=== PATIENT | female | born 1965 | race Caucasian/White ===

== ENCOUNTER 2017-10-15 06:50 | Day surgery (SDC) | payer MEDICAID ==
[2017-10-14 13:59] LABS: BASOPHILS 0.2 % (0-2); EOSINOPHILS 0.6 % (0-7); HEMATOCRIT 37.6 % (36.0-48.0); HEMOGLOBIN 12.7 g/dL (12-16); IMMATURE GRANULOCYTES 0.2 % (0-5); MCH 34.5 pg (26.0-34.0); MCHC 33.8 g/dL (31.0-37.0); MCV 102.2 fL (80.0-100.0); MEAN PLATELET VOLUME 9.8 fL (7.4-10.4); MONOCYTES 8.3 % (2-11); NEUTROPHILS 53.7 % (40-80); PLATELET COUNT 217 10x3/uL (130-400); RBC 3.68 10x6/uL (4.00-5.40); RDW 13.6 % (11.5-14.5)
[2017-10-14 14:08] LABS: APTT 29.4 SECONDS (22.8-39.4); INR 1.05 (0.85-1.17); PROTIME 13.3 SECONDS (11.6-15.0)
[2017-10-14 14:22] LABS: ALBUMIN 3.4 g/dL (3.4-5.0); ALKALINE PHOSPHATASE 62 U/L (46-116); ALT (SGPT) 76 U/L (10-68); BILIRUBIN - TOTAL 0.54 mg/dL (0.2-1.3); CALC OSMOLALITY 273 mosm/kg (275-300); CARBON DIOXIDE 25.5 mmol/L (21.0-32.0); CHLORIDE - SERUM 102 mmol/L (98-107); CREATININE - SERUM 0.8 mg/dL (0.6-1.3); GLUCOSE 116 mg/dL (74-106); PROTEIN - SERUM 7.6 g/dL (6.4-8.2); SODIUM 137 mmol/L (136-145); UREA NITROGEN 10 mg/dL (7-18); eGFR NON AFRICAN AMERICAN 80 mL/min (90-120)
[~2017-10-15] VITALS: Ht 170.2 cm; Wt 56.2 kg
--- NOTE | ~2017-10-15 | OP ---
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 POSTOPERATIVE DIAGNOSIS: Simple hyperplasia without atypia. PROCEDURE PERFORMED: Dilation and curettage. SURGEON: Gloria Landers MD ANESTHETIC: General. FINDINGS: Uterus sounds to approximately 7-8 cm. Ktwqq-kk-[id number] tissue removed. SPECIMENS: Endometrial curettings. SPECIMEN DISPOSITION: Pathology. ESTIMATED BLOOD LOSS: Less than or equal to 25 cc. FLUIDS: Lactated Ringer's 400 cc. URINE OUTPUT: Quantity sufficient void prior to this procedure. COMPLICATIONS: None. INDICATIONS: The patient is a 52-year-old female with postmenopausal bleeding and a known diagnosis of simple hyperplasia without atypia. The patient has been given risks and benefits of the procedure. DESCRIPTION OF PROCEDURE: After informed consent was assured, the patient was taken to the operating room where anesthetic was obtained without difficulty. The patient is now prepped and draped in the usual sterile fashion after being placed in stirrups. Speculum was introduced in the vagina. The cervix was identified and serially dilated to accommodate a #2 sharp curettage. Sharp curettage was performed after sounding of the uterus. Curettage was performed until good cry was obtained throughout. At the close of the procedure, single-tooth tenaculum, which was used to steady the cervix during this case, was removed with minimal bleeding noted. Sponge, lap, needle counts correct times 2 at the close. TRANSINT:[id number] Voice Confirmation ID: [id number] DOCUMENT ID: [id number] OPERATIVE REPORT [id number] COLBY ORTIZ GLORIA LANDERS MD at 1309 CC: [id number] DICTATION DATE: 11/12/17 0047 MARKETING PRODUCER: 11/12/[address] [facility] 10/15/[address] [address]
[~2017-10-15 06:50] MED LIST: HYDROCODON-ACE1 EAC7 PO; SEROQUEL300 MG PO; SYMBICORT 80-10.2 GM INH; XANAX1 MG PO
[2017-10-15 08:33] VITALS: BP 126/87; Ht 170.2 cm; Wt 56.2 kg
== END 2017-10-15 12:35 | disposition home or self-care (01) ==
LOC: D.OPS 06:50 → D.PAN 09:00 → D.OPS 12:35
PROVIDERS: Anesthesiology; Obstetrics & Gynecology
DX: N93.8 Other specified abnormal uterine and vaginal bleeding (principal); Z01.812 Encounter for preprocedural laboratory examination; N81.9 Female genital prolapse, unspecified; F17.200 Nicotine dependence, unspecified, uncomplicated

== ENCOUNTER 2017-11-15 16:53 | Emergency (ER) | payer MEDICAID ==
[2017-10-15 08:33] VITALS: BMI 19.4
[2017-11-15 18:29] LABS: BASOPHILS 0.1 % (0-2); EOSINOPHILS 0.1 % (0-7); HEMOGLOBIN 13.8 g/dL (12-16); IMMATURE GRANULOCYTES 0.2 % (0-5); MCHC 34.5 g/dL (31.0-37.0); MCV 101.5 fL (80.0-100.0); MEAN PLATELET VOLUME 9.8 fL (7.4-10.4); MONOCYTES 10.3 % (2-11); NEUTROPHILS 79.3 % (40-80); PLATELET COUNT 209 10x3/uL (130-400); RBC 3.94 10x6/uL (4.00-5.40); RDW 13.3 % (11.5-14.5); WBC 12.3 10x3/uL (4.8-10.8)
[2017-11-15 18:35] LABS: ALBUMIN 3.1 g/dL (3.4-5.0); ALKALINE PHOSPHATASE 67 U/L (46-116); ALT (SGPT) 61 U/L (10-68); BILIRUBIN - TOTAL 0.72 mg/dL (0.2-1.3); CALC OSMOLALITY 267 mosm/kg (275-300); CALCIUM 8.4 mg/dL (8.5-10.1); CARBON DIOXIDE 22.4 mmol/L (21.0-32.0); CHLORIDE - SERUM 100 mmol/L (98-107); CREATININE - SERUM 0.8 mg/dL (0.6-1.3); POTASSIUM - SERUM 3.3 mmol/L (3.5-5.1); SODIUM 133 mmol/L (136-145); UREA NITROGEN 7 mg/dL (7-18); eGFR NON AFRICAN AMERICAN 80 mL/min (90-120)
[2017-11-15 18:39] LABS: GLUCOSE 174 mg/dL (74-106)
== END 2017-11-15 21:40 | disposition home or self-care (01) ==
LOC: D.ER 16:53
PROVIDERS: Family Medicine
DX: J18.9 Pneumonia, unspecified organism (principal); J20.9 Acute bronchitis, unspecified; J06.9 Acute upper respiratory infection, unspecified; J44.9 Chronic obstructive pulmonary disease, unspecified; F17.200 Nicotine dependence, unspecified, uncomplicated

== ENCOUNTER 2018-06-18 23:27 | Emergency (ER) | payer MEDICAID ==
[~2018-06-18] VITALS: Ht 170.2 cm; Wt 49.5 kg
[2018-06-18 23:32] VITALS: Ht 170.2 cm; Wt 49.5 kg
[2018-06-18] MEDS ORDERED: ROBAXIN500 MG PO (23:55)
[2018-06-18] MEDS ORDERED: TORADOL10 MG PO (23:55)
[2018-06-19 00:42] VITALS: BP 132/83
== END 2018-06-19 00:43 | disposition home or self-care (01) ==
LOC: D.ER 23:27
DX: M54.16 Radiculopathy, lumbar region (principal); M62.830 Muscle spasm of back; M54.30 Sciatica, unspecified side; F17.200 Nicotine dependence, unspecified, uncomplicated; J44.9 Chronic obstructive pulmonary disease, unspecified

== ENCOUNTER 2018-07-02 06:50 | Day surgery (SDC) | payer MEDICAID ==
[2018-06-26 12:58] LABS: BASOPHILS 0.1 % (0-2); HEMATOCRIT 39.6 % (36.0-48.0); HEMOGLOBIN 13.8 g/dL (12-16); IMMATURE GRANULOCYTES 0.3 % (0-5); LYMPHOCYTES 26.4 % (15-50); MCH 35.3 pg (26.0-34.0); MCHC 34.8 g/dL (31.0-37.0); MCV 101.3 fL (80.0-100.0); MEAN PLATELET VOLUME 10.2 fL (7.4-10.4); MONOCYTES 12.3 % (2-11); NEUTROPHILS 59.9 % (40-80); PLATELET COUNT 250 10x3/uL (130-400); RBC 3.91 10x6/uL (4.00-5.40); RDW 14.8 % (11.5-14.5); WBC 9.1 10x3/uL (4.8-10.8)
[2018-06-26 13:07] LABS: APTT 26.8 SECONDS (22.8-39.4); INR 1.07 (0.85-1.17); PROTIME 13.4 SECONDS (11.6-15.0)
[2018-06-26 13:17] LABS: ALBUMIN 3.7 g/dL (3.4-5.0); ALKALINE PHOSPHATASE 49 U/L (46-116); ALT (SGPT) 66 U/L (10-68); BILIRUBIN - TOTAL 0.71 mg/dL (0.2-1.3); CALC OSMOLALITY 270 mosm/kg (275-300); CALCIUM 8.6 mg/dL (8.5-10.1); CARBON DIOXIDE 26.5 mmol/L (21.0-32.0); CHLORIDE - SERUM 100 mmol/L (98-107); CREATININE - SERUM 0.7 mg/dL (0.6-1.3); PROTEIN - SERUM 7.3 g/dL (6.4-8.2); SODIUM 135 mmol/L (136-145); UREA NITROGEN 16 mg/dL (7-18); eGFR NON AFRICAN AMERICAN > 90 mL/min (90-120)
[2018-06-26 13:21] LABS: GLUCOSE 93 mg/dL (74-106)
[~2018-07-02] VITALS: Ht 170.2 cm; Wt 54.4 kg
[~2018-07-02 06:50] MED LIST changes: +ROBAXIN500 MG PO; +TORADOL10 MG PO
[2018-07-02 07:34] VITALS: BP 137/71; Ht 170.2 cm; Wt 54.4 kg
[2018-07-02 07:37] LABS: HCG URINE NEGATIVE (NEGATIVE)
== END 2018-07-02 14:15 | disposition home or self-care (01) ==
LOC: D.OPS 06:50 → D.PAN 07:30 → D.OPS 09:00
PROVIDERS: Orthopaedic Surgery
DX: T84.84XA Pain due to internal orthopedic prosthetic devices, implants and grafts, initial encounter (principal); S83.282A Other tear of lateral meniscus, current injury, left knee, initial encounter; M13.862 Other specified arthritis, left knee; Z01.812 Encounter for preprocedural laboratory examination

== ENCOUNTER 2018-11-08 19:42 | Emergency (ER) | payer MEDICAID ==
[~2018-11-08] VITALS: Ht 170.2 cm; Wt 51.8 kg
[2018-11-08 19:51] VITALS: Ht 170.2 cm; Wt 51.8 kg
[2018-11-08 20:23] LABS: BASOPHILS 0.2 % (0-2); EOSINOPHILS 0.8 % (0-7); HEMATOCRIT 40.4 % (36.0-48.0); LYMPHOCYTES 36.1 % (15-50); MCH 35.5 pg (26.0-34.0); MCHC 34.7 g/dL (31.0-37.0); MCV 102.5 fL (80.0-100.0); MEAN PLATELET VOLUME 10.1 fL (7.4-10.4); MONOCYTES 8.3 % (2-11); NEUTROPHILS 54.6 % (40-80); RBC 3.94 10x6/uL (4.00-5.40); RDW 14.5 % (11.5-14.5); WBC 4.9 10x3/uL (4.8-10.8)
[2018-11-08 20:24] LABS: PLATELET COUNT 178 10x3/uL (130-400)
[2018-11-08 20:33] LABS: APTT 29.4 SECONDS (22.8-39.4); INR 1.1 (0.85-1.17); PROTIME 13.7 SECONDS (11.6-15.0)
[2018-11-08 20:35] LABS: D-DIMER-QUANTITATIVE 2.28 ug/mLFEU (0.20-0.54)
[2018-11-08 20:37] LABS: ALBUMIN 3.3 g/dL (3.4-5.0); ALKALINE PHOSPHATASE 66 U/L (46-116); ALT (SGPT) 125 U/L (10-68); BILIRUBIN - TOTAL 0.36 mg/dL (0.2-1.3); CALC OSMOLALITY 278 mosm/kg (275-300); CALCIUM 8.5 mg/dL (8.5-10.1); CHLORIDE - SERUM 103 mmol/L (98-107); CREATININE - SERUM 0.8 mg/dL (0.6-1.3); GLUCOSE 133 mg/dL (74-106); POTASSIUM - SERUM 3.6 mmol/L (3.5-5.1); PROTEIN - SERUM 7.3 g/dL (6.4-8.2); SODIUM 138 mmol/L (136-145); UREA NITROGEN 15 mg/dL (7-18); eGFR NON AFRICAN AMERICAN 79 mL/min (90-120)
[2018-11-08 20:48] LABS: CKMB 0.4 U/L (0.0-3.6); CREATINE KINASE 58 UL (21-215); PRO BNP 43 pg/mL (0-125)
[2018-11-08 20:53] LABS: TROPONIN-I < 0.017 ng/mL (0.000-0.060)
[2018-11-09 01:34] LABS: CKMB 0.4 U/L (0.0-3.6); CREATINE KINASE 50 UL (21-215)
[2018-11-09 01:37] LABS: TROPONIN-I < 0.017 ng/mL (0.000-0.060)
[2018-11-09] MEDS ORDERED: NAPROSYN500 MG PO (02:35)
[2018-11-09] MEDS ORDERED: ZPAK PO (02:35)
[2018-11-09 02:52] VITALS: BP 132/73
== END 2018-11-09 02:52 | disposition home or self-care (01) ==
LOC: D.ER 19:42
PROVIDERS: Family Medicine
DX: M94.0 Chondrocostal junction syndrome [Tietze] (principal); J40 Bronchitis, not specified as acute or chronic

== ENCOUNTER 2019-02-04 17:09 | Emergency (ER) | payer MEDICAID ==
[~2019-02-04 17:09] MED LIST changes: +NAPROSYN500 MG PO; +ZPAK PO
[2019-02-04 17:18] VITALS: BMI 19.4
[2019-02-04 18:02] LABS: BASOPHILS 0.1 % (0-2); EOSINOPHILS 0.4 % (0-7); HEMATOCRIT 41.8 % (36.0-48.0); IMMATURE GRANULOCYTES 0.1 % (0-5); LYMPHOCYTES 28.3 % (15-50); MCH 36.3 pg (26.0-34.0); MCHC 35.9 g/dL (31.0-37.0); MCV 101.2 fL (80.0-100.0); MEAN PLATELET VOLUME 9.9 fL (7.4-10.4); MONOCYTES 7.3 % (2-11); NEUTROPHILS 63.8 % (40-80); PLATELET COUNT 203 10x3/uL (130-400); RBC 4.13 10x6/uL (4.00-5.40); RDW 13.9 % (11.5-14.5); WBC 8.3 10x3/uL (4.8-10.8)
[2019-02-04 18:19] LABS: ALBUMIN 3.9 g/dL (3.4-5.0); ALKALINE PHOSPHATASE 72 U/L (46-116); ALT (SGPT) 153 U/L (10-68); BILIRUBIN - TOTAL 0.89 mg/dL (0.2-1.3); CALC OSMOLALITY 267 mosm/kg (275-300); CALCIUM 9.2 mg/dL (8.5-10.1); CARBON DIOXIDE 20.8 mmol/L (21.0-32.0); CHLORIDE - SERUM 101 mmol/L (98-107); CREATININE - SERUM 0.8 mg/dL (0.6-1.3); GLUCOSE 93 mg/dL (74-106); POTASSIUM - SERUM 3.7 mmol/L (3.5-5.1); PROTEIN - SERUM 8.1 g/dL (6.4-8.2); SODIUM 134 mmol/L (136-145); UREA NITROGEN 12 mg/dL (7-18); eGFR NON AFRICAN AMERICAN 79 mL/min (90-120)
[2019-02-04 19:04] LABS: APPEARANCE CLEAR (CLEAR); BILIRUBIN NEGATIVE (NEGATIVE); COLOR YELLOW (YELLOW); GLUCOSE NEGATIVE (NEGATIVE); KETONE NEGATIVE (NEGATIVE); NITRITE NEGATIVE (NEGATIVE); PROTEIN NEGATIVE (NEGATIVE); UROBILINOGEN NORMAL (NORMAL)
[2019-02-04] MEDS ORDERED: EC-NAPROSYN500 MG PO (19:51)
[2019-02-04] MEDS ORDERED: PREDNISONE20 MG PO (19:51)
[2019-02-04] MEDS ORDERED: CYCLOBENZAPRINE10 MG PO (19:51)
[2019-02-04 20:18] VITALS: BP 148/82
== END 2019-02-04 20:15 | disposition home or self-care (01) ==
LOC: D.ER 17:09
PROVIDERS: Family Medicine
DX: M25.552 Pain in left hip (principal); M54.42 Lumbago with sciatica, left side; F17.200 Nicotine dependence, unspecified, uncomplicated; K21.9 Gastro-esophageal reflux disease without esophagitis; J43.9 Emphysema, unspecified

== ENCOUNTER 2019-04-29 08:00 | Outpatient (CLI) | payer MEDICAID ==
[~2019-04-29 08:00] MED LIST changes: +CYCLOBENZAPRINE10 MG PO; +EC-NAPROSYN500 MG PO; +PREDNISONE20 MG PO
== END 2019-04-29 23:59 | disposition home or self-care (01) ==
LOC: D.MAMMO 08:00
PROVIDERS: ATTEND General Practice
DX: Z12.31 Encounter for screening mammogram for malignant neoplasm of breast (principal)

== ENCOUNTER 2019-10-04 05:54 | Inpatient (IN) | payer MEDICAID ==
[2019-10-01 12:28] LABS: BASOPHILS 0.3 % (0-2); EOSINOPHILS 0.2 % (0-7); HEMATOCRIT 41.6 % (36.0-48.0); HEMOGLOBIN 14.2 g/dL (12-16); LYMPHOCYTES 35.1 % (15-50); MCH 34.2 pg (26.0-34.0); MCHC 34.1 g/dL (31.0-37.0); MCV 100.2 fL (80.0-100.0); MEAN PLATELET VOLUME 9.9 fL (7.4-10.4); MONOCYTES 7.8 % (2-11); NEUTROPHILS 56.6 % (40-80); PLATELET COUNT 225 10x3/uL (130-400); RBC 4.15 10x6/uL (4.00-5.40); RDW 13.2 % (11.5-14.5); WBC 6.4 10x3/uL (4.8-10.8)
[2019-10-01 12:39] LABS: UDS - AMPHET NEGATIVE QUAL (NEGATIVE); UDS - BARB NEGATIVE QUAL (NEGATIVE); UDS - BENZO NEGATIVE QUAL (NEGATIVE); UDS - COCAINE NEGATIVE QUAL (NEGATIVE); UDS - OPIATE NEGATIVE QUAL (NEGATIVE); UDS - PCP NEGATIVE QUAL (NEGATIVE); UDS - THC POSITIVE QUAL (NEGATIVE)
[2019-10-01 12:43] LABS: ALBUMIN 3.6 g/dL (3.4-5.0); ANION GAP 12.5 mmol/L (8-16); BILIRUBIN - TOTAL 0.69 mg/dL (0.2-1.3); CALCIUM 8.8 mg/dL (8.5-10.1); CARBON DIOXIDE 28.1 mmol/L (21.0-32.0); CREATININE - SERUM 0.9 mg/dL (0.6-1.3); POTASSIUM - SERUM 3.6 mmol/L (3.5-5.1); PROTEIN - SERUM 7.7 g/dL (6.4-8.2)
[2019-10-01 12:52] LABS: APTT 32.1 SECONDS (22.8-39.4); INR 1.1 (0.85-1.17); PROTIME 14.1 SECONDS (11.6-15.0)
[~2019-10-04] VITALS: Ht 170.2 cm; Wt 64.0 kg
[2019-10-04] VITALS (7 sets, daily range): BP systolic 108–130; BP diastolic 57–87; Ht 170.2 cm; Wt 64.0 kg
[~2019-10-04 05:54] MED LIST changes: +GABAPENTIN100 MG PO; +PROAIR HFA8.5 G1 INH
[2019-10-04 06:42] LABS: HCG URINE NEGATIVE (NEGATIVE)
--- NOTE | 2019-10-04 13:47 | NUR ---
PT RECEIVED VIA BED FROM PACU TO ROOM 1278. PT SLIGHTLY DROWSY. PT RATES PAIN "12" OUT OF 10, REQUESTING PAIN MED BUT DOZING OFF. VSS, SEE FLOWSHEET FOR DOC. IV FLUIDS INFUSING TO LEFT FOREARM ORDERED. PT ON ROOM AIR. 3 LAP INCISIONS TO ABD ARE C/D WITH DERMABOND INTACT. PERINEUM NOTED TO HAVE SMALL AMOUNT BRIGHT RED BLEEDING TO TAIL OF VAGINAL PACKING CURLEX. PERIPAD PLACED TO MONITOR. CAZARES CATH DRAINING DARK YELLOW URINE TO BEDSIDE DRAINAGE. APPROX 35ML EMPTIED FROM UROMETER. SCD'S ON LE BILAT. ICE PACK TO ABD INCISION. PT POSITIONED WITH PILLOWS FOR COMFORT. REQUESTING "TO SMOKE", IS AGREEABLE TO NICOTINE PATCH IF CLEARED BY DR LANDERS. WILL NOTIFY MD AND SET UP COAL PIPELINE OPERATOR ORDERED.
--- NOTE | 2019-10-04 14:14 | NUR ---
NEURONTIN ADMIN ORDERED, SEE EMAR
--- NOTE | 2019-10-04 14:15 | NUR ---
WINDLACE MACHINE OPERATOR SET UP ORDERED. PRN BOLUS ADMIN ORDERED. SEE EMAR
--- NOTE | 2019-10-04 15:10 | NUR ---
NICOTINE PATCH TO LEFT UPPER ARM PER ORDER FROM DR LANDERS AT PT'S REQUEST. PERIPAD CHECKED AND NOTED TO BE HALF WAY SATURATED WITH VAGINAL BLEEDING. WILL NOTIFY .
--- NOTE | 2019-10-04 16:00 | NUR ---
DR LANDERS TO PT'S ROOM FOR EVAL OF VAGINAL BLEEDING. ORDERS TXA FOR BLEEDING, D/C TORADOL, AND CHECK 1800 CBC. ORDERS REGLAN Q6H FOR NAUSEA DUE TO PT ALREADY DROWSY WITH DILAUDID PSYCHOLOGICAL OPERATIONS OFFICER AND ALREADY HAD ZOFRAN ADMIN BY ANESTHESIA.
--- NOTE | 2019-10-04 16:15 | NUR ---
TXA ADMIN ORDERED, SEE EMAR
--- NOTE | 2019-10-04 16:26 | NUR ---
REGLAN ADMIN IV ORDERED, SEE EMAR.
--- NOTE | 2019-10-04 17:00 | NUR ---
K-PAD IN USE TO PT'S BACK FOR C/O CHRONIC BACK PAIN AND DISCOMFORT. SKIN ASSESSMENT OF BACK IS NOTED TO BE INTACT, WITH NO REDNESS OR EXCORIATION. PT ENCOURAGED TO REST. LIGHTS IN ROOM DIMMED, HOB LOWERED. PT AGREES SHE WILL TRY TO NAP. SRUx2, CL IN REACH.
--- NOTE | 2019-10-04 18:15 | NUR ---
THIS RN TO ROOM FOR PT CHECK. PT LYING IN BED SUPINE. RESP EVEN AND UNLABORED. NO DISTRESS NOTED. SRUx2, CL IN REACH.
--- NOTE | 2019-10-04 18:55 | NUR ---
THIS RN TO ROOM FOR PT CHECK. UA OBTAINED PER ORDER FOR CLOUDY URINE. LAB NOTIFIED TO PICKUP. PT PROVIDED WITH FRESH ICE WATER. PERIPAD NOTED TO HAVE APPROX 1/4 OF PAD SATURATED. PT INSTRUCTED WILL CONT TO MONITOR AND NOTIFY PM SHIFT. PT SITTING UP IN BED, VISITING WITH FAMILY. DENIES FURTHER NEEDS AT THIS TIME. 80ML CLOUDY YELLOW URINE EMPTIED FROM UROMTER.
--- NOTE | 2019-10-04 19:00 | NUR ---
REPORT TO AAMIR GARNER FOR PM SHIFT.
[2019-10-04 19:50] LABS: BASOPHILS 0 % (0-2); EOSINOPHILS 0 % (0-7); HEMATOCRIT 37.2 % (36.0-48.0); HEMOGLOBIN 12.7 g/dL (12-16); IMMATURE GRANULOCYTES 0.3 % (0-5); LYMPHOCYTES 2.5 % (15-50); MCH 34.3 pg (26.0-34.0); MCHC 34.1 g/dL (31.0-37.0); MCV 100.5 fL (80.0-100.0); MEAN PLATELET VOLUME 10.2 fL (7.4-10.4); MONOCYTES 3.6 % (2-11); NEUTROPHILS 93.6 % (40-80); PLATELET COUNT 204 10x3/uL (130-400); RDW 13.5 % (11.5-14.5); WBC 15.9 10x3/uL (4.8-10.8)
--- NOTE | 2019-10-04 20:25 | NUR ---
PT TRANSFERRED VIA BED TO WOMENS UNIT, PER THIS RN AND RICKEY MUELLER RN, TO ROOM 1223, SCD'S CONTINUE ON AND WORKING PROPERLY, HEATING PAD TO LOWER BACK PLACED BACK ON, ALL BELONGINGS ROOM WITH PT, PT ORIENTED TO ROOM, BED IN LOW POSITION, SIDE RAILS X 2, CALL LIGHT IN REACH
--- NOTE | 2019-10-04 20:47 | NUR ---
PT C/O SLIGHT NAUSEA, ADM ZOFRAN SIVP PER MD ORDERS, SEE EMAR, PT DENIES FURTHER NEEDS AT THIS TIME
--- NOTE | 2019-10-04 21:00 | NUR ---
SHIFT REPORT TO CEZAR CEVALLOS RN
--- NOTE | 2019-10-04 21:05 | NUR ---
DR CLARK NOTIFIED, REPORT OF H&H AND LOW URINE OUTPUT, ORDERS TO ADM 500ML BOLUS OF IV FLUID THAT IS ALREADY ORDERED TO INFUSE, ORDERS READ BACK AND VERIFIED
[2019-10-04 21:19] LABS: BILIRUBIN NEGATIVE (NEGATIVE); GLUCOSE NEGATIVE (NEGATIVE); KETONE NEGATIVE (NEGATIVE); NITRITE NEGATIVE (NEGATIVE); UROBILINOGEN NORMAL (NORMAL)
[2019-10-04 21:21] LABS: AMORPHOUS SEDIMENT <1+ /lpf (NONE SEEN); BACTERIA FEW /hpf (NEGATIVE); RED CELLS - URINE 0-5 /hpf (0-5); WHITE CELLS - URINE 0-5 /hpf (NEGATIVE)
--- NOTE | 2019-10-04 21:30 | NUR ---
TAKING OVER PT. CARE. PT IS SLEEPING WHEN I ENTERED THE ROOM. I HAD TO WAKE HER UP FOR MEDS. SHE GOT A 500ML BOLUS OF LR PER DR. FAUSTIN. SHE HAS NO C/O PAIN. HER VAG PACK LOOKS SOAKED. CHANGING PADS NEEDED. IV IS IN THE LEFT FOREARM WITHI LR RUNNING USUALLY AT 125ML/HR SHE HAS A KPAD TO HER LOW BACK. SHE IS WEARING SCD'S. HER URINE LOOKS CONCENTRATED AND SLIGHTLY CLOUDY. SHE HAS A DILAUDID PEDIATRIC ORTHODONTIST PUMP FOR HER PAIN CONTROL. I TOOK PT A INCENTIVE SPIROMETER AND HAD HER USE IT. SHE DID VERY WELL. SHE IS ON A CLEAR LIQUID DIET.
[2019-10-05] VITALS: BP 119/73
--- NOTE | 2019-10-05 02:40 | NUR ---
PT JUST FINISHED A POPCYCLE. SHE WAS GETTING COMFORTABLE AND I SAW A PILLOW UNDER HER KNEES. I ASKED HER TO REMOVE THAT AND TRY TO GET COMFORTABLE ANOTHER WAY. TOLD HER THAT BLOOD CLOTS COULD BE FORMED FROM PILLOW BEING UNDER HER KNEE. SHE WAS VERY COMPLIANT. SHE ASKED FOR WATER WHICH WAS SERVED. HER IV IS RUNNING AT 125ML/HR. HER URINE OUT PUT HAS PICKED UP AND HER URINE IS NOT SO CONCENTRATED. NOT MUCH BLOOD ON HER PAD. SHE TOLD ME SHE HAS A LITTLE BELLY PAIN. SHE WAS INSTRUCTED TO PUSH HER GROUP SALES COORDINATOR BUTTON. SHE STATES SHE FORGOT. SHE STATES SHE IS GOING TO SLEEP AGAIN.
[2019-10-05 04:00] VITALS: BP 131/68
--- NOTE | 2019-10-05 04:43 | NUR ---
PT HAS RESTED WELL ALL NIGHT. SHE HAS HAD MINIMAL C/O. HER URINE OUTPUT THIS SHIFT IS 1000ML. HER URINE IS NOW CLEAR YELLOW. PADS CHANGED. NOT MUCH BLOOD NOTED. IV IS STILL INFUSING AT 125 ML/HR. SHE IS TALKATIVE AT THIS TIME. SHE IS MOVING ABOUT BETTER IN BED. K PAD STILL IN PLACE.
[2019-10-05 06:40] LABS: BASOPHILS 0.1 % (0-2); EOSINOPHILS 0 % (0-7); HEMATOCRIT 31.4 % (36.0-48.0); HEMOGLOBIN 10.4 g/dL (12-16); IMMATURE GRANULOCYTES 0.2 % (0-5); LYMPHOCYTES 15.5 % (15-50); MCH 33.4 pg (26.0-34.0); MCHC 33.1 g/dL (31.0-37.0); MEAN PLATELET VOLUME 10.3 fL (7.4-10.4); MONOCYTES 8.9 % (2-11); NEUTROPHILS 75.3 % (40-80); PLATELET COUNT 183 10x3/uL (130-400); RBC 3.11 10x6/uL (4.00-5.40); RDW 13.7 % (11.5-14.5)
[2019-10-05 06:50] LABS: CALC OSMOLALITY 273 mosm/kg (275-300); CALCIUM 7.8 mg/dL (8.5-10.1); CARBON DIOXIDE 27.4 mmol/L (21.0-32.0); CHLORIDE - SERUM 106 mmol/L (98-107); CREATININE - SERUM 0.7 mg/dL (0.6-1.3); GLUCOSE 120 mg/dL (74-106); POTASSIUM - SERUM 3.8 mmol/L (3.5-5.1); SODIUM 137 mmol/L (136-145); UREA NITROGEN 9 mg/dL (7-18); eGFR NON AFRICAN AMERICAN > 90 mL/min (90-120)
[2019-10-05 06:52] LABS: WBC 11.6 10x3/uL (4.8-10.8)
--- NOTE | 2019-10-05 07:50 | NUR ---
DR LANDERS CALLS UNIT ORDERS RECEIVED TO ADVANCE PT PLAN OF CARE MAY SALINE LOCK IV, D/C IV MEDS AND ADULT NURSE PRACTITIONER. CAZARES CATH AND VAG PACKING TO REMAIN IN PLACE UNTIL NOON AND MD WILL REMOVE THEM HIMSELF.
[2019-10-05 08:30] VITALS: BP 98/70
--- NOTE | 2019-10-05 08:30 | NUR ---
AM ASSESSMENT COMPLETED CHARTED ON FLOWSHEET. DILAUDID BARRER AND TACKER DISCONTINUED AND IV SALINE LOCKED. ABD SOFT TO TOUCH, CAZARES CATH WITH 200ML CLEAR URINE NOTED TO COLLECTION CANISTER, SCD BILAT PER ORDERS. NICOTIN PATCH CHANGED PER PT REQUEST. PLAN OF CARE FOR TODAY GONE OVER WITH PT AND FAMILY, NO QUESTIONS OR CONCERNS AT THIS TIME. CALL LIGHT IN REACH
--- NOTE | 2019-10-05 10:45 | NUR ---
Pain reassessment at this time, pt is rating pain at 4/10. Assisstance provided with moving up in bed and repositioning K-pad for her lower back. Denies any needs at this time.
--- NOTE | 2019-10-05 12:30 | NUR ---
large ice water per request. No other needs at this time.
--- NOTE | 2019-10-05 12:50 | NUR ---
Dr Fuentes at bedside going over plan of care with pt, Vag packing removed quickly by Dr Fuentes and pt tolerates this well. Bernal cath removed intact at this time also. total of 1500ml clear urine noted. pt able to sit self up on side of the bed and then up to bathroom, she is unable to void at this time but reassured her that was common after bernal cath removeal. Gown changed, mesh breifs and teja pad provided. Denies nausea or dizziness. Amb to nursery window with family member then back to room.
--- NOTE | 2019-10-05 14:00 | NUR ---
pt amb with family member to vending area, rates her pain at 4/10 while walking. large ice water taken to her room per request.
--- NOTE | 2019-10-05 14:47 | NUR ---
CALLED TO ROOM, PT STATES THAT SHE VOIDED. 200ML CLEAR URINE NOTED TO COLLECTION HAT. PT DENIES BLEEDING AT THIS TIME.
[2019-10-05] MEDS ORDERED: MOBIC7.5 MG PO (14:49)
[2019-10-05] MEDS ORDERED: PERCOCET 5-3251 TAB PO (14:49)
[2019-10-05] MEDS ORDERED: NEURONTIN 300300 MG PO (14:49)
--- NOTE | 2019-10-05 15:29 | NUR ---
PT AMB TO GET ICE AND WATER PER HERSELF, INFORMS NURSE SHE HAS VOIDED AGAIN. THIS RN TO ROOM, 100ML EMPTIED FROM COLLECTION CANISTER. PT ASKING IF MD HAD GIVEN ORDERS FOR HER DISCHARGE YET. STATES SHE IS GOING TO TRY AND TAKE A NAP UNTIL DR LANDERS GIVES ORDERS.
--- NOTE | 2019-10-05 17:30 | NUR ---
SALINE LOCK REMOVED WITH CATH INTACT. VERBAL AND WRITTEN DISCHARGE INSTRUCTIONS GONE OVER, PT STATES HER UNDERSTANDING. SHE IS PROVIDIED WITH WRITTEN SCRIPTS FOR PERCOCET 7.5MG, MOBIC 15MG AND NEUROTIN 300MG. S/S OF INFECTIONS ARE ALSO REVIEWED AT THIS TIME AND VERIFIED THAT PT KNEW TO GO TO ER IS SHE BEGAN EXPERIENCE ANY. TAKEN OUT BY WHEELCHAIR, HOME BY PRIVATE CAR WITH HER FAMILY.
--- NOTE | 2019-10-06 11:47 | MORECARE ---
CASE MANAGEMENT DISCHARGE SUMMARY PATIENT: COLBY ORTIZ UNIT: [id number] ADM DATE: 10/04/19 AGE: 54 : 65 SEX: F ROOM/BED: D.1223 AUTHOR: JENNIFER SEGOVIA PHYSICIAN: REFERRING PHYSICIAN: GLORIA LANDERS MD DATE OF SERVICE: 10/06/19 Discharge Plan Patient Name: COLBY ORTIZ [facility] [facility] 1965 Planned Disposition: Home Anticipated Discharge Date: 10/05/19 Discharge Date: 10/05/2019 Expected LOS: 1 Initial Reviewer: [email or web address] Initial Review Date: 10/05/2019 Generated: 10/06/19 12:47 pm Patient Name: COLBY ORTIZ Page [id number] at 1147 All edits/amendments must be made on the electronic document DICTATION DATE: 10/06/19 1147 MOTION GRAPHICS DESIGNER: DENA 10/06/19 1147 RPT#: [id number] DC DATE:10/05/19 STATUS: DIS IN [facility] [address] [place] [address] END OF REPORT
== END 2019-10-05 17:30 | disposition home or self-care (01) | DRG 743 ==
LOC: D.OPS 05:54 → D.PAN 07:00 → D.OPS 07:00 → D.LD 13:24 → D.WS 20:37 → D.OPS 20:38 → D.WS 10-05 17:30
PROVIDERS: Anesthesiology; ADMIT Obstetrics & Gynecology; ATTEND Obstetrics & Gynecology
PROC: 0UT9FZZ Resection of Uterus, Via Natural or Artificial Opening With Percutaneous Endoscopic Assistance (ICD-10-PCS; principal; 2019-10-04 08:30)
PROC: 0UT7FZZ Resection of Bilateral Fallopian Tubes, Via Natural or Artificial Opening With Percutaneous Endoscopic Assistance (ICD-10-PCS; 2019-10-04 08:30)
PROC: 0UT2FZZ Resection of Bilateral Ovaries, Via Natural or Artificial Opening With Percutaneous Endoscopic Assistance (ICD-10-PCS; 2019-10-04 08:30)
PROC: 0USG7ZZ Reposition Vagina, Via Natural or Artificial Opening (ICD-10-PCS; 2019-10-04 08:30)
DX: N81.3 Complete uterovaginal prolapse (principal); J43.9 Emphysema, unspecified

== ENCOUNTER 2019-10-10 10:41 | Observation (INO) | payer MEDICAID ==
[~2019-10-10] VITALS: Ht 170.2 cm; Wt 56.8 kg
[~2019-10-10 10:41] MED LIST changes: +MOBIC7.5 MG PO; +NEURONTIN 300300 MG PO; +PERCOCET 5-3251 TAB PO
[2019-10-10 10:44] VITALS: Ht 170.2 cm; Wt 56.8 kg
[2019-10-10 11:09] LABS: BILIRUBIN NEGATIVE (NEGATIVE); GLUCOSE NEGATIVE (NEGATIVE); KETONE NEGATIVE (NEGATIVE); NITRITE NEGATIVE (NEGATIVE); SPECIFIC GRAVITY 1.005 (1.005-1.020); UROBILINOGEN NORMAL (NORMAL)
[2019-10-10 11:31] LABS: BASOPHILS 0.2 % (0-2); EOSINOPHILS 0.3 % (0-7); HEMOGLOBIN 12.4 g/dL (12-16); IMMATURE GRANULOCYTES 0.2 % (0-5); LYMPHOCYTES 11.6 % (15-50); MCH 34.4 pg (26.0-34.0); MCHC 34.4 g/dL (31.0-37.0); MEAN PLATELET VOLUME 9.6 fL (7.4-10.4); MONOCYTES 7.7 % (2-11); RDW 13.6 % (11.5-14.5); WBC 9.7 10x3/uL (4.8-10.8)
[2019-10-10 11:32] LABS: PLATELET COUNT 260 10x3/uL (130-400)
[2019-10-10 11:33] LABS: CALC OSMOLALITY 266 mosm/kg (275-300); CARBON DIOXIDE 20.7 mmol/L (21.0-32.0); CHLORIDE - SERUM 102 mmol/L (98-107); CREATININE - SERUM 0.8 mg/dL (0.6-1.3); GLUCOSE 106 mg/dL (74-106); SODIUM 134 mmol/L (136-145); UREA NITROGEN 9 mg/dL (7-18); eGFR NON AFRICAN AMERICAN 79 mL/min (90-120)
[2019-10-10 11:38] LABS: ALBUMIN 3.6 g/dL (3.4-5.0); ALKALINE PHOSPHATASE 65 U/L (30-120); ALT (SGPT) 21 U/L (10-68); BILIRUBIN - TOTAL 0.89 mg/dL (0.2-1.3); LIPASE 123 U/L (73-393); MAGNESIUM - SERUM 2.1 mg/dL (1.8-2.4); PROTEIN - SERUM 7.7 g/dL (6.4-8.2)
[2019-10-10 15:23] VITALS: BP 138/85
--- NOTE | 2019-10-10 15:23 | NUR ---
PT RECEIVED FROM E.R. VIA W/C TO ROOM 1273. PT TO BED, GOWNS AND PROVIDED WITH WARM BLANKET. VSS, SEE FLOWSHEET FOR DOC. ASSESSMENT DONE AND LUNGS NOTED TO BE CLEAR, HEART RATE REG RHYTHM, BS ACTIVE x 4Q. PT DENIES NAUSEA. 3 LAP ABD INCISIONS NOTED TO BE C/D/I FROM LAP HYST APPROX 1 WEEK AGO. RIGHT FOREARM PIV NOTED TO HAVE SLIGHT BRUISING. PT PROVIDED WITH SPRITE PER REQUEST, ALSO REQUESTING NICOTINE PATCH. POC DISCUSSED, PT IS AGREEABLE TO ENEMA ORDERED. SRUx2, CL AND PHONE IN REACH.
--- NOTE | 2019-10-10 16:00 | NUR ---
PHARMACY PHONED REGARDING NEED FOR LACTULOSE ENEMA, STATES THEY WILL HAVE IT OVER SHORTLY.
--- NOTE | 2019-10-10 16:28 | NUR ---
LACTUSLOSE ENEMA INITIATED PER ORDER. 500ML ADMIN OF THE TOTAL 1 LITER, PT INSTRUCTS THIS RN TO STOP, STATES SHE CAN'T TOLERATE ANYMORE VOLUME. TUBING CLAMPED AND REMOVED. PT INSTRUCTED TO HOLD ENEMA IN LONG SHE CAN TOLERATE, UP TO 30MIN IF POSSIBLE. TOWELS UNDER PT, BEDPAN PLACED NEXT TO PATIENT IN BED WITH CALL LIGHT IN HAND. PT INSTRUCTED TO CALL WHEN SHE HAS BOWEL MOVEMENT TO BE CLEANED UP, OR FOR ANY ASSIST IF NEEDED. UNDERSTANDING VERBALIZED.
--- NOTE | 2019-10-10 16:47 | NUR ---
PT CALLS OUT MANAGER MACHINE LIGHT, THIS RN TO ROOM. PT STATES SOME LIQUID CAME OUT IN BED SEBASTIAN. SMALL AMOUNT LACTULOSE MIXTURE NOTED IN BEDPAN, APPROX 50ML. BED SEBASTIAN EMPTIED AND REPLACED IN BED NEXT TO PATIENT. PT STATES SHE WILL TRY TO RETAIN REMAINDER OF FLUID LONGER. SRUx2, CL IN HAND.
--- NOTE | 2019-10-10 16:50 | NUR ---
PT CALLS OUT TRAVELING SALES EXECUTIVE LIGHT, THIS RN TO ROOM. PT STATES SHE GOT UP TO BR AND PASSED LACTULOSE LIQUID, BUT NO BM YET. APPROX ANOTHER 300ML LACTULOSE INSTILLED, PT THEN INSTRUCTS THIS RN TO STOP DUE TO ABD PRESSUE. INSTRUCTED TO HOLD FLUID AGAIN SHE CAN TOLERATE. BEDPAN IN BED NEXT TO PT. CALL LIGHT IN HAND. PT FAMILY MEMBER TO ROOM AT THIS TIME.
--- NOTE | 2019-10-10 17:10 | NUR ---
PT PIER WORKER LIGHT. THIS RN TO ROOM. PT STATES SHE HAD SMALL BM BUT FEELS SHE NEEDS TO GO HOME. APPROX 200ML MORE LACTULOSE MIXTURE ADMIN RECTALLY, PT STATE SHE CAN'T TOLERATE ANYMORE, WILL HOLD LONG SHE CAN. BED TOWELS IN PLACE WITH BEDPAD AT BEDSIDE, PT STATES SHE WILL PROBABLY JUST WALK TO THE BR AGAIN IF SHE CAN MAKE IT. SRUx2, CL IN REACH.
--- NOTE | 2019-10-10 17:28 | NUR ---
PT REQUESTING TUMS FOR HEARTBURN, ADMIN PO, SEE EMAR FOR DOC.
--- NOTE | 2019-10-10 17:42 | NUR ---
PT PRESSES CALL MATHEW, THIS RN TO ROOM. PT REPORTS LARGE BOWEL MOVMEMENT, STATES "I THINK I'M ALL EMPTIED OUT NOW, I FEEL 100 PERCENT BETTER!" PT REFUSES WANTING TO COMPLETE VOLUME LEFT OF 1 LITER LACTULOSE MIXTURE, STATES SHE DOES NOT FEEL SHE HAS ANY MORE STOOL TO PASS. PT STATES SHE WANTS TO SHOWER PRIOR TO D/C TO HOME. WILL PROVIDE SHOWER SUPPLIES.
--- NOTE | 2019-10-10 18:00 | NUR ---
PT TO SHOWER, PROVIDED WITH TOWELS, CLOTHS, AND SOAP. INSTRUCTED ON PULL CORD IN BR IF IN NEED OF ASSIST. DENIES NEEDS. WILL CONT TO MONITOR.
--- NOTE | 2019-10-10 18:10 | NUR ---
PT OUT OF SHOWER AND DRESSING SELF, DENIES PAIN OR ANY NEEDS. STATES HER SISTER WILL BE BACK SHORTLY TO PICK HER UP.
--- NOTE | 2019-10-10 18:30 | NUR ---
DISCHARGE INSTRUCTIONS GIVEN. PT VERBALIZES UNDERSTANDING AND SIGNS CHART COPIES. DECAF COFFEE GIVEN PER REQUEST. PT DENIES PAIN OR FURTHER NEEDS AT THIS TIME. AWAITING HER SISTER TO RETURN TO DRIVE HER FOR D/C TO HOME.
== END 2019-10-10 19:30 | disposition home or self-care (01) ==
LOC: D.ER 10:41 → D.LD 13:58 → OBSVTIME 14:15 → D.LD 19:30
PROVIDERS: Emergency Medicine; ADMIT Obstetrics & Gynecology; ATTEND Obstetrics & Gynecology
DX: E87.1 Hypo-osmolality and hyponatremia (principal); K59.00 Constipation, unspecified; Z98.890 Other specified postprocedural states; K21.9 Gastro-esophageal reflux disease without esophagitis; F17.200 Nicotine dependence, unspecified, uncomplicated

== ENCOUNTER 2020-04-05 11:04 | Emergency (ER) | payer MEDICAID ==
[~2020-04-05] VITALS: Ht 170.2 cm; Wt 60.5 kg
[2020-04-05 11:19] VITALS: BP 147/98; Ht 170.2 cm; Wt 60.5 kg
[2020-04-05 11:59] LABS: BILIRUBIN NEGATIVE (NEGATIVE); KETONE NEGATIVE (NEGATIVE); NITRITE NEGATIVE (NEGATIVE); UROBILINOGEN NORMAL (NORMAL)
[2020-04-05 12:00] LABS: BACTERIA FEW /hpf (NONE SEEN); EPITHELIAL CELLS 0-5 /hpf (0-5); RED CELLS - URINE NONE SEEN /hpf (0-5); WHITE CELLS - URINE 0-5 /hpf (0-5)
[2020-04-05 12:06] LABS: UDS - AMPHET NEGATIVE QUAL (NEGATIVE); UDS - BARB NEGATIVE QUAL (NEGATIVE); UDS - BENZO NEGATIVE QUAL (NEGATIVE); UDS - COCAINE NEGATIVE QUAL (NEGATIVE); UDS - OPIATE NEGATIVE QUAL (NEGATIVE); UDS - PCP NEGATIVE QUAL (NEGATIVE); UDS - THC POSITIVE QUAL (NEGATIVE)
[2020-04-05 12:39] LABS: BASOPHILS 0.2 % (0-2); EOSINOPHILS 0.5 % (0-7); HEMATOCRIT 42.7 % (36.0-48.0); HEMOGLOBIN 14.6 g/dL (12-16); IMMATURE GRANULOCYTES 0.2 % (0-5); LYMPHOCYTES 32.8 % (15-50); MCH 34.1 pg (26.0-34.0); MCHC 34.2 g/dL (31.0-37.0); MCV 99.8 fL (80.0-100.0); MEAN PLATELET VOLUME 9.9 fL (7.4-10.4); MONOCYTES 6.4 % (2-11); NEUTROPHILS 59.9 % (40-80); PLATELET COUNT 237 10x3/uL (130-400); RBC 4.28 10x6/uL (4.00-5.40); RDW 13.6 % (11.5-14.5)
[2020-04-05 12:48] LABS: APTT 29.5 SECONDS (22.8-39.4); INR 0.96 (0.85-1.17); PROTIME 12.7 SECONDS (11.6-15.0)
[2020-04-05 12:54] LABS: ANION GAP 13.4 mmol/L (8-16); CALCIUM 8.7 mg/dL (8.5-10.1); CARBON DIOXIDE 27.7 mmol/L (21.0-32.0); CREATININE - SERUM 0.9 mg/dL (0.6-1.3); POTASSIUM - SERUM 4.1 mmol/L (3.5-5.1)
[2020-04-05 12:57] LABS: ALBUMIN 4.3 g/dL (3.4-5.0); BILIRUBIN - TOTAL 0.64 mg/dL (0.2-1.3); PROTEIN - SERUM 7.9 g/dL (6.4-8.2)
[2020-04-05] MEDS ORDERED: MEDROL DOSE PACK4 MG PO (13:26)
[2020-04-05] MEDS ORDERED: DICLOFENAC SODI50 MG PO (13:26)
== END 2020-04-05 13:52 | disposition home or self-care (01) ==
LOC: D.ER 11:04
PROVIDERS: Family Medicine
DX: R20.2 Paresthesia of skin (principal); M54.12 Radiculopathy, cervical region; M54.9 Dorsalgia, unspecified; J44.9 Chronic obstructive pulmonary disease, unspecified; F17.219 Nicotine dependence, cigarettes, with unspecified nicotine-induced disorders

== ENCOUNTER → 2020-11-07 09:03 | Outpatient (CLI) | payer MEDICAID ==
[2020-04-05 11:19] VITALS: BMI 20.8
[~2020-11-07 09:03] MED LIST changes: +DICLOFENAC SODI50 MG PO; +MEDROL DOSE PACK4 MG PO
== END | disposition home or self-care (01) ==
LOC: D.US 09:00
PROVIDERS: ATTEND General Practice
DX: R10.84 Generalized abdominal pain (principal)

== ENCOUNTER → 2020-12-08 09:05 | Outpatient (CLI) | payer MEDICAID ==
[2020-04-05 11:19] VITALS: BMI 20.8
--- NOTE | 2020-12-11 08:00 | ST ---
PATIENT:COLBY ORTIZ MEDICAL RECORD: [id number] SEX: F LOCATION:[facility] ORDER #: ADMISSION DATE: 12/08/20 AGE OF PATIENT: 55 REFERRING PHYSICIAN: INTERPRETING PHYSICIAN: SEMAJ GTZ MD DATE OF SERVICE: 12/08/2020 NUCLEAR STRESS TEST Gated: Gated is normal, normal wall motion, normal wall thickening, calculated EF 72%. SPECT imaging: SPECT imaging in the short axis view shows good uptake along the anterior wall, lateral wall and inferior wall. Horizontal axis: Horizontal axis confirms good uptake along the anterior wall and inferior wall. Vertical axis: Vertical axis shows good uptake along the lateral wall and septum. FINAL IMPRESSION: 1. Normal gated, normal wall motion, normal EF 72%. 2. Normal SPECT imaging. FINAL IMPRESSION: The scan is low risk for any significant ongoing myocardial ischemia or previous myocardial infarction. LV function remains normal. Continued risk factor modification is recommended. TRANSINT:[id number] Voice Confirmation ID: [id number] DOCUMENT ID: [id number] SEMAJ GTZ MD at 0800 CC: [id number] DICTATION DATE: 12/09/20 0955 HEALTH CARE SOCIAL WORKER: 12/10/20 0521 DEP CLI 12/08/20 [address] [place] [address]
== END | disposition home or self-care (01) ==
LOC: D.HCCARDIO 09:00
PROVIDERS: ATTEND Internal Medicine Interventional Cardiology
DX: R07.9 Chest pain, unspecified (principal)